=== PATIENT | female | born 1950 | race Caucasian/White ===

== ENCOUNTER 2019-06-12 13:37 | Observation (INO) | payer MEDICARE, SELFPAY ==
[2019-06-12] VITALS (10 sets, daily range): BP systolic 85–128; BP diastolic 41–83; PULSE 80–90; RESP 14–16; TEMP 36.1–36.9; O2SAT 94–99; BMI 23.0
--- NOTE | 2019-06-12 | PATH_ITS ---
[facility] Accession Number: [id number] . 01 Material submitted: . PART A: colon - ASCENDING COLON POLYP X3 PART B: colon - TRANSVERSE COLON POLYP BIOPSY X2 PART C: colon - SIGMOID COLON POLYP BIOPSY . 02 Diagnosis: A. Ascending Colon Polyp x3: Portions of tubular adenoma x2. Superficial portions of colorectal mucosa x3 with no significant histomorphologic abnormality. . B. Transverse Colon Polyp Biopsy x2: Portions of tubular adenoma x5. Superficial portions of colorectal mucosa x2 with no significant histomorphologic abnormality. . C. Sigmoid Colon Polyp, Biopsy: No tissue identified for histologic evaluation. [facility]/06/15/2019 . 02 Electronically signed: . Shannon La MD, Pathologist NPI- [id number] . 01 Gross description: . Part A: ASCENDING COLON POLYP X3: Received in formalin are multiple fragment(s) of mancilla, soft tissue measuring 0.9 x 0.5 x 0.3 cm in aggregate submitted entirely in 1 cassette(s) Part B: TRANSVERSE COLON POLYP BIOPSY X2: Received in formalin are multiple fragment(s) of mancilla, soft tissue measuring 1.4 x 0.7 x 0.3 cm in aggregate submitted entirely in 1 cassette(s) Part C: SIGMOID COLON POLYP BIOPSY : Received in formalin are multiple fragment(s) of mancilla, soft tissue measuring 0.1 x 0.1 x 0.1 cm in aggregate submitted entirely in 1 cassette(s) Minute specimen, may not survive processing. /CKI /CKI . 02 Pathologist provided ICD-10: K63.5 . 02 CPT . 082888, 299752, 158078 Specimen Comment: A duplicate report has been generated due to demographic updates. Performed at: [address] [place] [address] [address], [place], [place] [id number] MD Waldemar Velásquez MD Phone: [phone] Performed at: [address] [id number] MD Lou Stevenson MD Phone: [phone]
--- NOTE | 2019-06-12 12:56 | P.OP.ENDO_ITS ---
Operative Date/Time/Diagnoses Date of procedure: 06/12/19 Time of procedure: 16:11 Pre-op diagnosis: 1. Screening for colon cancer 2. Bright red bleeding per rectum Post-op diagnosis: other (Ascending polyps x3, transverse polyps x2, sigmoid polyp x4 (unresected x 3), moderate sigmoid diverticulosis, anal papillae, external hemorrhoids) Procedure & Clinicians Study performed: 1. Colonoscopy Same procedure as scheduled: Yes Indications: 1. Screening for colon cancer 2. Bright red bleeding per rectum Surgeon: Destiney De La Paz Procedure Notes SCOAP/Timeout: 16:10 Procedure in detail: ENDOSCOPIST: Destiney De La Paz MD PROCEDURE: Colonoscopy with cold snare, multiple, with methylene blue lift Sedation RN: Edwige Elliott RN Sedation start time: 4:11 p.m. Sedation end time: 5:45 p.m. INDICATIONS: 1. Screening for colon cancer 2. Bright red bleeding per rectum MEDICATION: Levsin 0.125 mg sublingual, incremental doses of Versed and fentanyl until appropriate level sedation achieved. ASA CLASS: 2 CECAL WITHDRAWAL TIME: 1 hour 23 minutes COMPLICATIONS: None. EXTENT OF PROCEDURE: Cecum. QUALITY OF PREP: Good with portions of liquid stool. PROCEDURE: Prior to insertion of the colonoscope, a digital rectal examination was accomplished with circumferential palpation of the distal rectal mucosa, and moderate external hemorrhoids noted. The high-definition pediatric colonoscope was passed into the rectum in the usual fashion and advanced over to the cecum without difficulty. The ileocecal valve, appendiceal stoma, and medial wall all could be inspected and no abnormalities were seen. ASCENDING COLON: As the colonoscope was withdrawn, care was taken to expose and inspect the haustral folds and a 6-8 mm polyp was seen, lifted with methylene blue and removed with cold snare. Two other small polyps, 2-4 mm in size were also in the same area and removed with cold biopsy forceps, excellent hemostasis noted. HEPATIC FLEXURE: Normal no polyps, diverticula or other abnormalities. TRANSVERSE COLON: 2 polyps were seen in the transverse colon, 6-8 mm, removed with cold biopsy forceps, excellent hemostasis. Otherwise, no diverticula or other abnormalities. DESCENDING COLON: Normal no polyps, diverticula or other abnormalities. SIGMOID COLON: A 6-8 mm polyp was seen in the mid-sigmoid colon, lifted with methylene blue, and removed with cold snare. Post polypectomy, a large vein was noted at the base of the polypectomy site with subsequent hematoma formation. No bleeding was seen but secondary to the risk of a post polypectomy bleed, 3 hemoclips were placed prophylactically. In the distal sigmoid colon, there were 2 large polyps, obscuring over 50% of the lumen, approximately 2-3 cm in size, spot tattoo was placed approximately 5 cm distal to each lesion on the medial and lateral irby. A 6-8 mm polyp was seen in the same region and was left unresected secondary to likely need for colonic resection of that section due to the large polyps and extended time under sedation. Minor diverticulosis. RECTUM: J maneuver was produced. Two small anal papillae were seen. There was no significant perianal disease. The J maneuver was broken. The remainder of the rectum was inspected and there was moderate external hemorrhoid disease. The scope was withdrawn. IMPRESSION: 1. Ascending polyp x3, 2-8 mm, removed with cold biopsy forceps as well as meth ylene blue lift and cold snare 2. Transverse polyp x2, 6-8 mm, removed with cold biopsy forceps 3. Sigmoid polyp x1, 6-8 mm polyp lifted with methylene blue and removed with cold snare and placement of hemoclip x3 with excellent hemostasis. 4. Sigmoid polyp x2, 20-30 mm, spot tattoo placed, unresected 5. Sigmoid polyp x1, 6-8 mm, unresected secondary to adjacent location to large polyps and likely need for colonic resection 6. Diverticulosis, mild, sigmoid colon 7. External hemorrhoids, moderate 8. Anal papillae PLAN: 1. Secondary to post polypectomy bleeding risk of the sigmoid polyp that re quired hemaclip placement, patient will be placed in observation overnight due to distance from the hospital. She lives on [facility] and would not have a way to get back to the hospital expediently tonight if needed. 2. Referral to general surgery to discuss removal of large polyps. The possibility of a missed lesion including a malignancy has been discussed with the patient previously. Potential alarm symptoms have been discussed and should be reported immediately. Scope withdrawal time: 1 hour 23 minutes Findings: diverticulosis and polyp Specimen(s): other Complications: none Impression: As above. Post-procedure Recommendations: Other recommendation (Referral to general surgery.) Plan for aftercare: Overnight observation due to distance from hospital and risk of post polypectomy bleed Follow up: weeks (1-2) Disposition: observation
[2019-06-12] MEDS: SODIUM CHLORIDE 0.9% 1,000 ML 200 ML IV ×2 (14:46→17:48)
[2019-06-12] MEDS: HYOSCYAMINE 0.125 MG TABLET PO (14:48)
[2019-06-12] MEDS: MIDAZOLAM 5 MG/5 ML VIAL IV (16:07)
[2019-06-12] MEDS: fentaNYL 250 MCG/5 ML INJ IV (16:07)
[2019-06-12] MEDS: GLUCAGON,HUMAN RECOMBINANT 1 MG/ML VIAL IV (17:30)
--- NOTE | 2019-06-12 18:50 | SUR.PHASEI ---
Post procedure note: 175 Arrived to PACU, sedated, respirations regular and unlabored. VSS, O2 sat WNL on Room air. 182 Dr De La Paz spoke with patient at bedside in PACU. 1844 Report called to Rome Portillo RN. Patient transported to IP room 212 admitted for overnight observation per Dr. De La Paz. VSS, O2 sat WNL, AA/o x 3. No complaints of pain. Abdomen soft. Tolerating PO without nausea. IV patent.
[2019-06-12] MEDS: DEXTROSE 5%-0.45% NS 1,000 ML 125 ML IV (19:24)
--- NOTE | 2019-06-12 20:02 | P.HP_ITS ---
History of Present Illness History of Present Illness Date Patient Seen: 06/12/19 Time Patient Seen: 20:02 Chief complaint: [id number] Narrative: 69 year female is admitted for observation secondary to risk for post-polypectomy bleeding. She is status post a colonoscopy this afternoon, approximately 4 hours prior to presentation. She had a total 6 polypectomies, 1 of which required 3 hemoclip placements secondary to the polyp overlying a vein. There was no active bleeding at the time of the sigmoid polypectomy but a moderate-sized hematoma formed at the site of the polypectomy and was prophylactically clipped x3 to prevent post polypectomy bleeding. After the procedure, patient reported no abdominal pain nor any abdominal distention; her vital signs were stable. However, she lives on [facility] and would not be able return promptly tonight with any complications due [place] of overnight ferry services. Past medical history: Postmenopausal GERD Hypothyroidism Hyperlipidemia Depression/anxiety Shingles Past surgical history: D & C with myomectomy, 2010 Bilatera carpal tunnel repair, 1999 Bilateral tubal ligation, 1984 Family history: Mother at age 68 from oral cancer, history of hypertension, hyperlipidemia, alcohol abuse. Siblings with thyroid disease and obesity Social history: to [employer] retired, live on [facility]. No alcohol use. One cup of caffeine per day. Former smoker, quit in 2014. No illicit drug use. Medications: Pravastatin 40 mg p.o. q.h.s. Synthroid 125 mcg p.o. q.a.m. Citalopram 40 mg p.o. q.day Omeprazole 20 mg p.o. q.a.m. Allergies: No known drug allergies Patient History Social History household members: spouse Family & Social History Social History: household members spouse Meds Home Medications and Allergies Allergies Allergy/AdvReac Type Severity Reaction Status Date / Time No Known Drug Allergies Allergy Verified 06/12/19 18:04 Review of Systems Review of Systems ROS Unobtainable: All systems reviewed & are unremarkable except as noted in HPI and below Exam Vital Signs (past 8 hours): - 06/12/19 14:55 06/12/19 17:54 06/12/19 17:59 Temperature 97.8 F 97.0 F L Pulse Rate 87 90 89 Respiratory Rate 16 14 14 Blood Pressure 113/63 100/54 L 109/60 Pulse Oximetry 99 94 94 06/12/19 18:04 06/12/19 18:14 06/12/19 18:30 Temperature 97.3 F L 97.3 F L Pulse Rate 89 88 87 Respiratory Rate 14 14 14 Blood Pressure 113/63 85/41 L 109/65 Pulse Oximetry 99 99 99 06/12/19 18:45 06/12/19 19:27 Temperature 97.2 F L Pulse Rate 83 Respiratory Rate 15 Blood Pressure 119/70 Pulse Oximetry 98 97 Oxygen Delivery Method Room Air Narrative Exam Narrative: GENERAL: Alert and oriented, appearing stated age and in no acute distress. HEENT: Head normocephalic/atraumatic. Pupils equal, round, and reactive to light and accomodation. Extraocular muscles intact. Tympanic membranes clear. Nasal mucosa moist, septum midline. Oral mucosa moist, no lesions. Neck soft and supple, no lymphadenopathy. LUNGS: Clear to ausculation bilaterally, no wheezes, rhonchi or rales. CV: Normal S1 and S2 with regular rate and rhythm, no audible murmurs, rubs or gallops. ABDOMEN: Soft, non-tender, non-distended, no organomegaly. Positive bowel sounds. EXTREMITIES: No clubbing, cyanosis, or edema. NEURO: Cranial nerves II through XII grossly intact, no focal deficits. PSYCH: Alert and oriented x 3. SKIN: No concerning lesions. Assessment & Plan Assessment & Plan narrative: 1. Risk of post polypectomy bleeding. Patient will be placed in observation bed overnight secondary to distance from hospital and risk of post polypectomy bleeding. She will be kept NPO with ice chips until the morning. Will watch patient closely with cardiac telemetry and provide supportive therapy including IV fluids and SCDs. 2. Hypothyroidism, if stable overnight, will restart Synthroid 125 mcg p.o. in the morning. 3. GERD, holding omeprazole. 4. Hyperlipidemia, holding pravastatin. 5. Depression, holding citalopram. 6. Code: Full 7. DVT prophylaxis: SCDs. 8. Disposition: Anticipate discharge to home tomorrow. Time Spent With Patient Time with patient: Greater than 35 minutes
[2019-06-13 01:40] VITALS: O2SAT 98
[2019-06-13 01:43] VITALS: BP 117/60; PULSE 101; RESP 17; TEMP 36.7; O2SAT 98
[2019-06-13] MEDS: DEXTROSE 5%-0.45% NS 1,000 ML 125 ML IV (03:44)
[2019-06-13 04:01] VITALS: BP 110/59; PULSE 108; RESP 20; TEMP 36.7; O2SAT 95
[2019-06-13 05:00] VITALS: O2SAT 95
[2019-06-13 06:46] LABS: Add Manual Diff / Slide Review NO; Basophils Absolute Auto 0 /uL (0-100); Basophils Percent Auto 0.2 % (0-2); Eosinophils Absolute Auto 0 /uL (0-450); Eosinophils Percent Auto 0.1 % (2-4); Hematocrit 36.2 % (36-46); Lymphocytes Absolute Auto 1400 /uL (1100-4500); Lymphocytes Percent Auto 10.7 % (25-40); Mean Corpuscular HGB Conc 33.3 % (30-36); Mean Corpuscular Hemoglobin 31.8 PG (26-34); Mean Corpuscular Volume 95.5 fL (80-100); Monocytes Absolute Auto 1000 /uL (0-900); Monocytes Percent Auto 7.5 % (3-14); Neutrophils Absolute Auto 10400 /uL (1500-7000); Neutrophils Percent Auto 81.5 % (50-75); Platelet Count 172 X10^3/uL (150-400); Red Blood Cell Count 3.79 X10^6/uL (4.0-5.2); Red Cell Distribution Width 14.6 % (11.6-14.8); White Blood Cell Count 12.7 X10^3/uL (4.5-11.0)
[2019-06-13 07:15] VITALS: BP 123/60; PULSE 85; RESP 16; TEMP 37.1; O2SAT 94
[2019-06-13 08:55] VITALS: O2SAT 94
--- NOTE | 2019-06-13 09:03 | PC.NURSE ---
Addendum entered by Fatimah Matos R.N. 06/13/19 10:56: At 1030, pt reported having passed flatus, scant amount of mucous passed. Tolerated scrambled eggs at 1000. Pt very eager to discharge and wanted to leave [facility]. Remains asymptomatic. Discharge Summary packet reviewed with pt and her . No voiced concerns. Pt left unit via wheelchair at 1054 in no distress with her present to drive her home and [employer] escort. [place] [facility] [place] Addendum entered by Fatimah Matos R.N. 06/13/19 09:09: Left message with Dr. De La Paz office answering service at [phone] regarding pt wanting to discharge home. Original Note: Day Shift- Pt A&OX4, able to make needs known using call light. Denies pain, nausea, chest pain or pressure, shortness of breath, dizziness or light-headedness with rest or ambulation. No flatus passed and no BM post colonoscopy. Nothing per rectum. Voiding qs. Does have slight abd tenderness/mild cramping intermittently. IVF infusing per order, NPO except ice chips. Pt wanting to discharge home, at bedside.
--- NOTE | 2019-06-13 09:52 | PM.DS.1 ---
History of Present Illness History of Present Illness Date Patient Seen: 06/13/19 Time Patient Seen: 10:03 Chief complaint: [id number] Narrative: 69 year female is admitted for observation secondary to risk for post-polypectomy bleeding. She is status post a colonoscopy this afternoon, approximately 4 hours prior to presentation. She had a total 6 polypectomies, 1 of which required 3 hemoclip placements secondary to the polyp overlying a vein. There was no active bleeding at the time of the sigmoid polypectomy but a moderate-sized hematoma formed at the site of the polypectomy and was prophylactically clipped x3 to prevent post polypectomy bleeding. After the procedure, patient reported no abdominal pain nor any abdominal distention; her vital signs were stable. However, she lives on [facility] and would not be able return promptly tonight with any complications due to the lack of overnight ferry services. Past medical history: Postmenopausal GERD Hypothyroidism Hyperlipidemia Depression/anxiety Shingles Past surgical history: D & C with myomectomy, 2010 Bilatera carpal tunnel repair, 1999 Bilateral tubal ligation, 1984 Family history: Mother at age 68 from oral cancer, history of hypertension, hyperlipidemia, alcohol abuse. Siblings with thyroid disease and obesity Social history: to [employer] retired, live on [facility]. No alcohol use. One cup of caffeine per day. Former smoker, quit in 2014. No illicit drug use. Medications: Pravastatin 40 mg p.o. q.h.s. Synthroid 125 mcg p.o. q.a.m. Citalopram 40 mg p.o. q.day Omeprazole 20 mg p.o. q.a.m. Allergies: No known drug allergies Discharge Providers Provider Date of admission: 06/12/19 Discharge Date: 06/13/19 Primary care physician: Yaya Orr MD Consults: 06/12/19 19:00 Consult to Discharge Planning Routine Comment: Discharge provider: Destiney De La Paz MD Summary Hospital Course Discharge Diagnosis: 1. Risk of post polypectomy bleeding Hospital Course: Unremarkable. Patient slept well overnight and denies abdominal pain, abdominal distention, or any bright red bleeding per rectum this morning. Was kept NPO with ice chips overnight, has not passed gas yet but has excellent bowel tones in all 4 quadrants. No nausea or vomiting, excellent appetite this morning. Ambulating around the room. Vital signs stable throughout. CBC from this morning revealed a slightly elevated white count at 12.7 with a normal hemoglobin/hematocrit, 12.0/36.2. Platelets 172. Patient will eat breakfast prior to discharge. Status at Discharge Cognitive/behavioral status at discharge: at baseline, oriented Functional status at discharge: independent ambulation Overall status at discharge: patient is back to baseline Time Spent with Patient Time spent: Greater than 30 minutes Exam Vital Signs (past 8 hours): - 06/13/19 04:01 06/13/19 05:00 06/13/19 07:15 Temperature 98.0 F 98.8 F Pulse Rate 108 H 85 Respiratory Rate 20 16 Blood Pressure 110/59 L 123/60 Pulse Oximetry 95 95 94 06/13/19 08:55 Temperature Pulse Rate Respiratory Rate Blood Pressure Pulse Oximetry 94 Oxygen Delivery Method Room Air Oxygen Flow Rate 0 Narrative Exam Narrative: GENERAL: Alert and oriented, appearing stated age and in no acute distress. HEENT: Head normocephalic/atraumatic. Pupils equal, round, and reactive to light and accomodation. Extraocular muscles intact. Tympanic membranes clear. Nasal mucosa moist, septum midline. Oral mucosa moist, no lesions. Neck soft and supple, no lymphadenopathy. LUNGS: Clear to ausculation bilaterally, no wheezes, rhonchi or rales. CV: Normal S1 and S2 with regular rate and rhythm, no audible murmurs, rubs or gallops. ABDOMEN: Soft, non-tender, non-distended, no organomegaly. Positive bowel sounds in all 4 quadrants. EXTREMITIES: No clubbing, cyanosis, or edema. NEURO: Cranial nerves II through XII grossly intact, no focal deficits. PSYCH: Alert and oriented x 3. SKIN: No concerning lesions. Objective Labs Result Diagrams: 06/13/19 06:23 Labs: Laboratory Results - last 24 hr 06/13/19 06:23 WBC 12.7 H RBC 3.79 L Hgb 12.0 Hct 36.2 MCV 95.5 MCH 31.8 MCHC 33.3 RDW 14.6 Plt Count 172 Neut % (Auto) 81.5 H Lymph % (Auto) 10.7 L Divide % (Auto) 7.5 Eos % (Auto) 0.1 L Baso % (Auto) 0.2 Neut # (Auto) 60115 H Lymph # (Auto) 1400 Divide # (Auto) 1000 H Eos # (Auto) 0 Baso # (Auto) 0 Discharge Plan Discharge Plan Patient Disposition: Home Discharge Med Rec/Prescriptions Follow up/Referrals: Destiney De La Paz MD [Non-Staff] - Yaya Orr MD [Primary Care Provider] - Discharge Orders: Discharge (Order); Ordered 06/13/19 Ordered By: Destiney De La Paz Provider Discharge Instructions Diet: Diet as Tolerated Diet comment: start with soft solids, advance as tolerated Activity: no lifting greater than 10 pounds, no straining or deep bending. Other treatments: Follow up [address] De La Paz Wait to hear on Saturday about appointment with specialist Skin/Wound/Dressing Care Report to your healthcare provider any signs of infection, such as:: increased pain Visit Report/Discharge Packet Instructions: DI for Colonoscopy, DI for Colon Polypectomy, DI for Hemorrhoids, How to Prevent Falls, DI for Diverticulosis Stand Alone Forms: Colonoscopy Result: FMA Discharge Data Primary Care Provider: Yaya Orr Attending Provider: Destiney De La Paz Quality VTE Deep Vein Thrombosis/Pulmonary Embolism Present on Admission: No
--- NOTE | 2019-06-13 10:04 | CM.DANOTE ---
DCP Brief Assessment Patient is a 69 year old female who was admitted OBS STATUS on 06/12/19 for post colonoscopy bleeding. Pt has MCR for insurance and her PCP is Dr. Yaya Orr. EMR was reviewed. Per MD, pt has been stable overnight after significant findings and high likelihood of bleeding. Pt medically stable for d/c home with spouse today and no identified barriers to discharge. Per RN, pt has been independent with spouse bedside and requesting to go home today since she has remained stable. No bedside assessment at this time due to triage needs. Plan: Patient to d/c back home to [facility] via spouse POV today. No SW needs at this time, please refer if indicated. RADHA Hoffmann
== END 2019-06-13 10:54 | disposition home or self-care (01) ==
LOC: ENDO 13:38 → AC 06-13 09:55 → ENDO 06-13 11:09
PROVIDERS: Admitting Provider Student in an Organized Health Care Education/Training Program; PCP Family Medicine; Visit Provider Student in an Organized Health Care Education/Training Program
PROC: 0DJD8ZZ Inspection of Lower Intestinal Tract, Via Natural or Artificial Opening Endoscopic (ICD-10-PCS; CPT 45378; principal; 2019-06-12 15:00)
DX: K62.5 Hemorrhage of anus and rectum (principal); K57.30 Diverticulosis of large intestine without perforation or abscess without bleeding; K64.4 Residual hemorrhoidal skin tags; D12.2 Benign neoplasm of ascending colon; D12.3 Benign neoplasm of transverse colon; D12.5 Benign neoplasm of sigmoid colon
CPT/HCPCS: 45381; 45385; 45380; 45382; 36415; 85025; G0378; J1610; J2250; J3010

== ENCOUNTER 2019-08-12 11:08 | Day surgery (SDC) | payer MEDICARE, SELFPAY ==
[2019-07-17 10:10] VITALS: BMI 23.0
--- NOTE | 2019-08-12 | PATH_ITS ---
[facility] Accession Number: [id number] . 01 Material submitted: . PART A: colon - POLYP AT 18 CM PART B: colon - POLYP AT 28 CM PART C: colon - POLYP AT 90 CM PART D: colon - POLYP AT 15 CM . 02 Diagnosis: A. Colon, Polyp at 18 cm, Biopsies: Multiple fragments of tubulovillous adenoma. No evidence of malignancy or high-grade dysplasia. . B. Colon, Polyp at 28 cm, Biopsy: Tubular adenoma. The excision appears complete. . C. Colon, Polyp at 90 cm, Biopsy: Multiple fragments of tubular adenoma. . D. Colon, Polyp at 15 cm, Biopsy: Hyperplastic polyp. [facility] 08/14/2019 1120 Local . 02 Electronically signed: . Lou Stevenson MD, Pathologist NPI- [id number] . 01 Gross description: . A. Received in a formalin-filled container, labeled colon polyp at 18 cm, and consists of multiple red hemorrhagic whole and fragmented soft tissues, 5.1 x 3.1 x 1.7 cm in aggregate. The cauterized presumed bases of the largest tissues are inked blue, and sectioning of the largest tissues reveals hemorrhagic, otherwise grossly unremarkable cut surfaces. The specimen is entirely submitted as follows: A1 - soft tissue fragments; A2-A3 - each single tissue, sectioned, entirely submitted; A4-A5 - single tissue, sectioned, entirely submitted; A6-A7 - largest tissue, sectioned, entirely submitted. Note: Tissue was very friable upon sectioning. B. Received in a formalin-filled container, labeled polyp at 28 cm, and consists of a single pink-mancilla to hemorrhagic pedunculated raised soft tissue, 2.8 x 2.5 x 2.1 cm, in which the cauterized base is inked orange. Sectioning reveals hemorrhagic, otherwise mancilla, grossly unremarkable cut surfaces. The specimen is entirely submitted within B1-B4. C. Received in a formalin-filled container, labeled polyp at 90 cm, and consists of five mancilla hemorrhagic unoriented raised soft tissues, 0.5 cm up to 0.7 cm. The cauterized bases of the four largest tissues are inked blue and orange. Sectioning reveals hemorrhagic, otherwise grossly unremarkable cut surfaces. The specimen is entirely submitted as follows: C1 - soft tissue fragments including smallest intact whole polyp; C2-C3 - each two polyps, differentially inked, bisected, entirely submitted. D. Received in a formalin-filled container, labeled polyp at 15 cm, and consists of a single mancilla, diffusely raised soft tissue, 0.4 x 0.3 x 0.3 cm. The base is inked blue. Specimen is bisected and entirely submitted in D1. ([id number]) /MRV 08/13/2019 1030 Local . 02 Pathologist provided ICD-10: D12.6 . 02 CPT . 898959, 594615, 932168, 268295 Performed at: 01 [facility] [address] [place] [address], [place], [place] [id number] MD Waldemar Velásquez MD Phone: [phone] Performed at: 02 [facility] [address] [place], [place] [id number] MD Lou Stevenson MD Phone: [phone]
[2019-08-12 11:29] VITALS: BP 112/64; PULSE 63; RESP 15; TEMP 36.4; O2SAT 100
[2019-08-12] MEDS: LACTATED RINGERS 1,000 ML 42 ML IV (11:52)
--- NOTE | 2019-08-12 12:16 | PM.PREOP ---
Pre-operative Note Interval Note History & Physical reviewed/Exam performed by Physician: Yes Changes to H&P: No
[2019-08-12] MEDS: LACTATED RINGERS 1,000 ML 100 ML IV (13:44)
--- NOTE | 2019-08-12 13:45 | SUR.OPER ---
GLASSES IN LABELED BAG TO PACU WITH PATIENT
--- NOTE | 2019-08-12 14:18 | P.OP_ITS ---
Operative Date/Time/Diagnoses Date of procedure: 08/12/19 Time of procedure: 14:18 Pre-op diagnosis: large polyps, diverticulosis Post-op diagnosis: same Procedure & Clinicians Procedure: Colonoscopy with polypectomy x5 using hot snare and cold forceps Indications: This is a 69-year-old woman who never had a screening colonoscopy until about 1 month ago. During that procedure she was found to have some large polyps which were referred to me for removal. I explained to the patient that we could potentially remove them endoscopically, but this may lead to an increased risk of perforation, and she may ultimately still need surgical resection of a portion of her colon. Surgeon: Amelie Cortez Rounding Machine Operator: Gomez Domínguez Anesthesia Type: General (with LMA by anesthesiologist) Operative Notes Findings: Two very large pedunculated polyps in the sigmoid colon, a 1 cm pedunculated polyp in the sigmoid colon, a 1 cm pedunculated polyp in the ascending colon at 90 cm, a small flat polyp in the rectum at 15 cm, diffuse diverticulosis with large mouth diverticula in the sigmoid colon, grade 2-3 internal hemorrhoids, moderate external hemorrhoids. Specimen(s): other (Large pedunculated polyps at 18cm and 24cm with hot snare, 2 cm polyps between 18-24 cm in the sigmoid removed with hot snare. 1cm polyp at 90cm with hot snare, 2mm flat polyp at 15cm removed with cold forceps) Estimated Blood Loss (mL): 1 Procedure in detail: The patient was brought to operating the room and placed in left lateral decubitus position with all bony prominences padded. A time-out was performed and then general anesthesia was induced and patient was intubated with an LMA by Dr. Lopez. A rectal exam was performed revealing moderate external hemorrhoids. The colonoscope was then introduced to the rectum and advanced to the sigmoid colon. In the sigmoid colon 2 large pedunculated polyps on long stalk were seen. I asked Dr. Domínguez to come in and assist. He assisted in removing the 2 large polyps in the sigmoid colon. They were both upwards of 2-3 cm at the body with long thick stalks at the base. The 1st polyp removed was at 24 cm in the sigmoid colon, and it was removed with hot snare and brought out with suction. A tattoo was placed just proximal to this at 28 cm using 3 cc of Monse ink, 1 cc in each of 3 locations at this level. The 2nd polyp was at 18 cm and was also removed with hot snare dividing the stalk of the polyp, and brought out with suction. A 2nd tattoo was seen at 15 cm which had previously been placed by Dr. De La Paz at the patient's initial colonoscopy, and that tattoo was noted to be adequate. Additional tattooing was not done at this level. Once these 2 polyps were removed the colonoscope was advanced to the cecum in the usual fashion. The cecum was identified by the appendiceal orifice, the mucosal try fold, and the ileocecal valve. The scope was then retracted while rotating side to side and examining each mucosal fold. On retraction several additional polyps were found and removed. An additional 2 cm polyp in the same area as the large pedunculated polyps in the sigmoid was removed with hot snare. A 1 cm polyp at 90 cm which was on a long stalk was removed with hot snare. It was flopping back and forth over a mucosal fold, and would have been easily missed if it were lying proximally at the time of her previous exam. A small flat polyp at 15 cm was also removed with cold forceps. The patient was also noted to have moderate diverticulosis throughout the colon with marked large mouth diverticula in the sigmoid colon. At the conclusion procedure retroflexion was performed and moderate grade 2-3 internal hemorrhoids without stigmata of bleeding were seen. The scope was then withdrawn from the rectum the procedure was concluded. The patient tolerated the procedure well was transferred to the PACU in stable condition. Start time 12:58, cecum time 13:52, end time 14:16. Tattoo placed at 28cm; tattoo noted at 15cm Total withdrawal time 24 minutes. Complications: none (No immediate complications) Post-operative Condition: stable Disposition: PACU Plan for aftercare: Follow-up for pathology discussion in 1-2 weeks
[2019-08-12 14:23] VITALS: BP 118/60; PULSE 96; RESP 11; TEMP 36.2; O2SAT 100
[2019-08-12 14:28] VITALS: BP 136/65; PULSE 88; RESP 13; O2SAT 98
[2019-08-12 14:33] VITALS: BP 118/50; PULSE 90; RESP 17; O2SAT 99
[2019-08-12 14:43] VITALS: BP 103/54; PULSE 97; RESP 13; O2SAT 98
[2019-08-12 15:07] VITALS: BP 110/70; PULSE 88; RESP 16; TEMP 36.6; O2SAT 97
== END 2019-08-12 15:12 | disposition home or self-care (01) ==
PROVIDERS: PCP Family Medicine; Visit Provider Surgery
PROC: 0DJD8ZZ Inspection of Lower Intestinal Tract, Via Natural or Artificial Opening Endoscopic (ICD-10-PCS; CPT 45378; principal; 2019-08-12 12:15)
DX: K63.5 Polyp of colon (principal); K57.30 Diverticulosis of large intestine without perforation or abscess without bleeding; K64.1 Second degree hemorrhoids; K64.8 Other hemorrhoids; D12.6 Benign neoplasm of colon, unspecified
CPT/HCPCS: 45385; 45380; J1100; J2250; J2405; J2704; J3010

== ENCOUNTER → 2021-10-16 08:59 | Outpatient (CLI) | payer MEDICARE, SELFPAY ==
[2019-07-17 10:10] VITALS: BMI 23.0
[2021-10-16 10:44] LABS: COVID19 -Nasal RAPID Negative (Negative)
== END ==
PROVIDERS: Visit Provider Surgery
DX: Z20.822 Contact with and (suspected) exposure to COVID-19 (principal)
CPT/HCPCS: 87635

== ENCOUNTER 2021-10-17 08:57 | Day surgery (SDC) | payer MEDICARE, SELFPAY ==
[2019-07-17 10:10] VITALS: BMI 23.0
--- NOTE | 2021-10-17 | PATH_ITS ---
[facility] Accession Number: [id number] . 01 Material submitted: . sigmoid colon - SIGMOID . 02 Diagnosis: Sigmoid Colon, Biopsy: Colonic mucosa with no diagnostic abnormality. Negative for active, chronic, and microscopic colitis. Negative for dysplasia and malignancy. . MRV 10/19/2021 1126 Local . 02 Electronically signed: . Kemar Thompson MD, PhD, Pathologist NPI- [id number] . 01 Gross description: . SIGMOID: Received in formalin is 1 fragment(s) of mancilla, soft tissue measuring 0.3 x 0.3 x 0.2 cm submitted entirely in 1 cassette(s) /MICHAEL 10/18/2021 1950 Local . 02 Pathologist provided ICD-10: Z12.11 . 02 CPT . 279387 Performed at: 01 [facility] [address] [id number] MD Waldemar Velásquez MD Phone: [phone] Performed at: 02 [facility] [address] [place], [place] [id number] MD Lou Stevenson MD Phone: [phone]
[2021-10-17 09:16] VITALS: BP 117/77; PULSE 74; RESP 16; TEMP 37.1; O2SAT 98; BMI 22.6
[2021-10-17] MEDS: LACTATED RINGERS 1,000 ML 200 ML IV (09:40)
[2021-10-17] MEDS: FLEETS ENEMA 1 EACH PR ×2 (11:20→11:54)
--- NOTE | 2021-10-17 11:21 | SUR.PREOP ---
Fleets enema given as instructed by Dr. Moncada. updated about delay in surgery.
--- NOTE | 2021-10-17 11:56 | SUR.PREOP ---
Out put reported to Dr. Moncada, second fleets given.
--- NOTE | 2021-10-17 13:29 | PM.HP.1 ---
History of Present Illness History of Present Illness Date Patient Seen: 10/17/21 Time Patient Seen: 13:30 Chief complaint: SCREENING COLONOSCOPY UNDER GEN ANSESTHESIA Narrative: 71 y.o woman with a history of multiple colonic polyps here for routine screening colonoscopy. No personal or family history of intestinal malignancy. On further history denies any recent gastrointestinal symptoms. No nausea, vomiting, abdominal pain, loss of appetite, unexplained weight loss, change in bowel habits, diarrhea, constipation, melena, hematochezia, or bright red blood per rectum. Patient History Medical History Colon polyps Depression High cholesterol Hypothyroid Tubular adenoma of colon Surgical History H/O myomectomy H/O tubal ligation History of carpal tunnel surgery Family & Social History Family History Mother Hypertension Cancer Social History: household members spouse Tobacco & Substance use: Smoking Status Former smoker alcohol intake current alcohol intake frequency 0-2 drinks per day Substance Use Type does not use Meds Home Medications and Allergies Home Medications Medication Instructions Recorded Confirmed Type citalopram 40 mg tablet 40 mg PO DAILY tab 07/29/19 08/12/19 History levothyroxine 125 mcg tablet 125 mcg PO DAILY 07/29/19 08/12/19 History (Synthroid) lysine 500 mg tablet (L-Lysine) 500 mg PO DAILY 07/29/19 08/12/19 History multivitamin 1 cap PO DAILY 07/29/19 08/12/19 History pravastatin 40 mg tablet 40 mg PO DAILY 07/29/19 08/12/19 History Allergies Allergy/AdvReac Type Severity Reaction Status Date / Time No Known Drug Allergies Allergy Verified 10/17/21 09:13 Exam Vital Signs (past 8 hours): - 10/17/21 09:16 Temperature 98.8 F Pulse Rate 74 Respiratory Rate 16 Blood Pressure 117/77 Pulse Oximetry 98 Oxygen Delivery Method Room Air Narrative Exam Narrative: GENERAL: Adult woman in no apparent distress HEENT: No scleral icterus CV: Regular rate, no peripheral edema LUNGS: No increased work of breathing. Patient speaks in full sentences without oxygen support. ABDOMEN: Soft, non-tender, non-distended NEURO: Nonfocal, normal strength throughout, normal gait. SKIN: Warm and dry Assessment & Plan Assessment and plan (1) Colon polyps: Status: Acute Assessment & Plan narrative: The patient requires colorectal screening and colonoscopy is recommended. Technical details were discussed. Risks, benefits, alternatives explained. Risks including but not limited to myocardial infarction, aspiration, bleeding, pain, missed lesion, incomplete examination, need for further radiographic studies, colonic perforation, and need for major abdominal surgery were discussed. All questions were answered to their satisfaction, and they are in agreement with this plan. Time Spent With Patient Critical Care time: I spent a total of [] minutes of critical care time on this patient's care today; this time is exclusive of procedural time.
[2021-10-17] MEDS: MIDAZOLAM 5 MG/5 ML VIAL IV (14:10)
[2021-10-17] MEDS: fentaNYL 250 MCG/5 ML INJ IV (14:10)
--- NOTE | 2021-10-17 14:13 | P.OP.COLON_ITS ---
Operative Date/Time/Diagnoses Date of procedure: 10/17/21 Time of procedure: 14:13 Pre-op diagnosis: personal history of colonic polyps Post-op diagnosis: same Procedure & Clinicians Study performed: Colonoscopy and polypectomy Same procedure as scheduled: Yes Indications: Personal history colonic polyps Surgeon: Eliel Moncada Procedure Notes Procedure in detail: Medications: Conscious sedation using 4mg IV midazolam and 100mcg IV of fent anyl The history and physical was performed/updated and the patient is ASA class is 2. The procedure was discussed in detail with the patient. Potential risks complications including infection, bleeding, missed diagnosis, perforation, need for surgery, and were explained. Their questions were answered and informed consent was obtained. Patient was brought to the procedure room and placed standard monitoring equipment. The patient's vital signs were monitored continuously throughout the entire procedure. Prior to starting time-out was performed. The patient was placed in the left lateral recumbent position. Procedural sedation was administered. Examination began with a thorough inspection of the perianal area there was no evidence of fissures, fistulae, external hemorrhoids or cutaneous malignancy. The colonoscopy scope was then placed into the anal canal and was advanced to the cecum, which was identified by the ileocecal valve, the appendiceal orifice and the confluence of the taenia. The scope was then slowly withdrawn examining colon thoroughly in all directions, irrigating it of any residual stool. FINDINGS 1. Sigmoid-5 mm polyp removed with biopsy forceps 30 cm from the anal verge 2. Tattoo from previous polypectomy observed with no evidence of Re growth 3. Sigmoid diverticulosis 4. External skin The patient tolerated the procedure well. They will be discharged once criteria are met. The prep was of fair quality. The withdrawl time was 12 minutes. The sedation time was 28 minutes. Specimen(s): other (Sigmoid polyp) Complications: none Impression: Colonic polyp Post-procedure Recommendations: Colonoscopy in 5 years Disposition: same day surgery
[2021-10-17 14:16] VITALS: BP 111/56; PULSE 70; RESP 16; TEMP 36.6; O2SAT 95
[2021-10-17 14:21] VITALS: BP 119/65; PULSE 68; RESP 15; O2SAT 95
[2021-10-17 14:26] VITALS: BP 119/72; PULSE 69; RESP 14; O2SAT 95
[2021-10-17 14:55] VITALS: BP 114/72; PULSE 71; RESP 16; TEMP 37.3; O2SAT 99
== END 2021-10-17 15:00 | disposition home or self-care (01) ==
PROVIDERS: PCP Family Medicine; Referring Provider Surgery; Visit Provider Surgery
PROC: 0DJD8ZZ Inspection of Lower Intestinal Tract, Via Natural or Artificial Opening Endoscopic (ICD-10-PCS; CPT 45378; principal; 2021-10-17 10:45)
DX: Z12.11 Encounter for screening for malignant neoplasm of colon (principal); Z86.010 Personal history of colon polyps; F32.9 Major depressive disorder, single episode, unspecified; E78.00 Pure hypercholesterolemia, unspecified; E03.9 Hypothyroidism, unspecified; K63.5 Polyp of colon; K57.30 Diverticulosis of large intestine without perforation or abscess without bleeding
CPT/HCPCS: 45380; 99152; 99153; J2250; J3010

== ENCOUNTER → 2024-11-30 11:53 | Outpatient (CLI) | payer MEDICARE, SELFPAY ==
[2019-07-17 10:10] VITALS: BMI 23.0
--- NOTE | 2024-11-30 11:58 | DI.RAD.S_ITS ---
PROCEDURE: XR HAND RT MIN 3V INDICATIONS: BILATERAL THUMB PAIN TECHNIQUE: 3 views of the hand(s) acquired. COMPARISON: None. FINDINGS AND IMPRESSION: [id number] scattered degenerative changes, worst at the first CMC, STT, and 2nd and 5th DIP joints. No acute displaced fracture or dislocation. If there is high concern for further derangement, consider MRI evaluation. No suspicious soft tissue calcifications. Dictated by: David Ventura M.D. on 11/30/2024 at 15:10 Approved by: David Ventura M.D. on 11/30/2024 at 15:10
--- NOTE | 2024-11-30 11:58 | DI.RAD.S_ITS ---
PROCEDURE: XR HAND LT MIN 3V INDICATIONS: BILATERAL THUMB PAIN TECHNIQUE: 3 views of the hand(s) acquired. COMPARISON: None. FINDINGS AND IMPRESSION: Moderate scattered degenerative changes, worst at the 1st CMC and STT joints. Subchondral lucencies are present likely degenerative geodes versus sequelae of prior erosion. No acute displaced fracture or dislocation. If there is high concern for further derangement, consider MRI evaluation. No suspicious soft tissue calcifications. Dictated by: David Ventura M.D. on 11/30/2024 at 15:11 Approved by: David Ventura M.D. on 11/30/2024 at 15:11
== END ==
PROVIDERS: PCP Family Medicine; Referring Provider Family Medicine; Visit Provider Family Medicine
DX: M79.644 Pain in right finger(s) (principal); M79.645 Pain in left finger(s)
CPT/HCPCS: 73130